=== PATIENT | female | born 1970 | race Caucasian/White ===

== ENCOUNTER 2019-03-24 07:37 | Day surgery (SDC) | payer OTHER ==
--- NOTE | 2019-03-17 12:23 | PREOPHP ---
DATE OF ADMISSION: 03/05/2019 HISTORY OF PRESENT ILLNESS: This is a 49-year-old female, 4, para 4, patient with no history of menopause. She is still menstruating. No vasomotor symptoms. She has been spotting recently fo r a whole month. Patient with a history of shortness of breath and mitral valve disease and a tubal ligation. ALLERGIES: SHE IS NOT ALLERGIC TO ANY MEDICATIONS. MEDICATIONS: She is on no medications. FAMILY HISTORY: Hypertension. SOCIAL HISTORY: No history of smoking or drinking or endocrine disease. PHYSICAL EXAMINATION: VITAL SIGNS: Stable. Blood pressure 120/80, pulse is 80, respirations 16. She is 5 feet 5 inches. She weighs 178. HEAD AND NECK: Normal. BREASTS: Soft, nontender, no masses. CHEST: Clear. HEART: A holosystolic murmur with a slightly irregular heartbeat. ABDOMEN: Normal. GENITALIA: Normal. The cervix with a large polyp or fibroid that is coming out and being delivered by the uterus. This is coming off her cervix. The uterus, normal size. RECTAL: Negative. EXTREMITIES: Normal. DIAGNOSES: 1. Intractable menometrorrhagia. 2. Large cervical polyp or fibroid. 3. Mitral valve disease, irregular heartbeat. 4. Perimenopausal syndrome. PLAN: She is undergoing a D and C, excision of the cervical polyp or mass and hysteroscopy with the TruClear hysteroscope in case she has fibroids inside the uterus that need to be ablated. The patien t has been advised of the possible risks and possible complications of the procedure with her alterna tives and options. Written information was provided. She had no more questions and agreed to go ahe ad with the procedure with full understanding and no more questions. Dictated By: DUSTY RODRIGUEZ/NTS Conf#: [id number] DID#: [id number]
[2019-03-24] VITALS (14 sets, daily range): BP systolic 96–134; BP diastolic 61–85; PULSE 56–68; RESP 12–25
[~2019-03-24] VITALS: Ht 152.9 cm; Wt 79.6 kg
--- NOTE | 2019-03-24 09:30 | PREAC ---
Date/Time of Note Date/Time of Note DATE: 03/24/19 TIME: 09:29 Anesthesia Eval and Record Evaluation Time Pre-Procedure Interview DATE: 03/24/19 TIME: 09:29 Age 49 Sex female NPO: 8 hrs Preoperative diagnosis missed ab Planned procedure d and c Past Medical History Past Medical History: None Surgery & Anesthesia Issues No known issue Meds Anticoagulation: No Beta Elisabet within 24 hr: No Reason Beta Elisabet not given: Pt. not on B-Elisabet Meds reviewed: Yes Allergies Uncoded Allergies: NEED ALLERGY (Allergy, Unknown, 03/23/19) Allergies Reviewed: Yes Labs/Studies Labs Reviewed: Reviewed by anesthesiologist test: Negative Pre-procedure Exam Last vitals Vital Signs Date Temp Pulse Resp B/P (MAP) Pulse Ox O2 O2 Flow FiO2 Time Delivery Rate 03/24/19 98.3 59 18 125/85 Room Air 08:42 (98) 03/24/19 95 08:38 Airway: Adequate mouth opening, Adequate thyromental dist Mallampati: Mallampati II Teeth: Normal Lung: Normal Heart: Normal ASA Physical Status ASA physical status: 2 Emergency: None Planned Anesthetic General/MAC: LMA Planned Pain Management Parenteral pain med Pre-operative Attestations Prior to commencing anesthesia and surgery, the patient was re-evaluated, there was verification of: *The patient's identity *The results of appropriate recent lab work and preoperative vital signs *The above evaluation not changing prior to induction *Anesthetic plan, risk benefits, alternative and complications discussed with patient/family; questions answered; patient/family understands, accepts and wi shes to proceed. EUGENE MARINO Mar 24, 2019 09:30
[2019-03-24] MEDS ORDERED: PROPOFOL 100 ML ONE (10:26)
[2019-03-24] MEDS ORDERED: FENTAnyl 50 MCG/ML VIAL ONE (10:27)
--- NOTE | 2019-03-24 10:36 | HPN ---
Date/Time of Note Date/Time of Note DATE: 03/24/19 TIME: 10:36 Interval H&P Admission Note Pt. seen H&P reviewed: No system changes DUSTY AL MD Mar 24, 2019 10:36
[2019-03-24] MEDS ORDERED: LIDOCAINE 2% (SDV) 5 ML INJ ONE (11:16)
--- NOTE | 2019-03-24 11:18 | SIPON ---
Date/Time of Note Date/Time of Note DATE: 03/24/19 TIME: 11:16 Operative Report Preoperative Diagnosis Intractable menometrorrhagia. Large cervical polyp Fibroid uterus Mitral valve disease Perimenopause Postoperative Diagnosis Same Operation/Procedure Performed Fractional D&C. excision of cervical polyp. hysteroscopy ablation of the endometrium Surgeon see signature line information assistant None Anesthesia: general Estimated blood loss: minimal Transfusion Required none Specimen Cervical polyp endometrial contents Grafts/Implants none Complications none DUSTY AL MD Mar 24, 2019 11:18
--- NOTE | 2019-03-24 11:19 | PD.PPDC ---
BUS AIDE Discharge Instruction Condition Appum0Mr Patient Condition: Juxxb1w Good Diet Tbikh4Vf Diet: Ntvtk6h Resume Regular Diet Activity/Restrictions [id number] Activity: Vloxj8t Normal Activity May Shower Ohoes6Jc Restrictions: Domfs0n No Exercising No Lifting No Driving No Sexual Activity Nothing in the Vagina No Jeffers No Tampons, douche Follow-up Follow-up with Physician: 2, Week/Weeks Return to clinic for Ead[employer] Instructions: Qdlit2s Fever greater than 101 Chills Worsening abdominal pain Excessive Vaginal Bleeding More than 2 pads per hour Unable to tolerate diet DUSTY AL MD Mar 24, 2019 11:19
--- NOTE | 2019-03-24 11:21 | PAC ---
Date/Time of Note Date/Time of Note DATE: 03/24/19 TIME: 11:21 Post-Anesthesia Notes Post-Anesthesia Note Last documented vital signs Vital Signs Date Temp Pulse Resp B/P (MAP) Pulse Ox O2 O2 Flow FiO2 Time Delivery Rate 03/24/19 98.3 59 18 125/85 Room Air 1121 (98) 03/24/19 95 08:38 Activity: WNL Respiratory function: WNL Cardiovascular function: WNL Mental status: Baseline Pain reasonably controlled: Yes Hydration appropriate: Yes Nausea/Vomiting absent: Yes EUGENE MARINO Mar 24, 2019 11:21
[2019-03-24] MEDS ORDERED: ALBUTEROL 0.083% (NEB) 2.5 MG/3 ML AMP HHN PRN (11:30)
[2019-03-24] MEDS ORDERED: KETOROLAC 30 MG INJ IV PRN (11:30)
[2019-03-24] MEDS ORDERED: ONDANSETRON 4 MG INJ IV PRN (11:30)
[2019-03-24] MEDS ORDERED: DIPHENHYDRAMINE 50 MG INJ IV PRN (11:30)
[2019-03-24] MEDS ORDERED: EPHEDrine 25 MG/5 ML SYG IV PRN (11:30)
[2019-03-24] MEDS ORDERED: MEPERIDINE 25 MG INJ IV PRN (11:30)
[2019-03-24] MEDS ORDERED: hydrALAzine 20 MG INJ IV PRN (11:30)
[2019-03-24] MEDS ORDERED: FENTAnyl 50 MCG/ML VIAL IV PRN ×3 (11:30)
[2019-03-24] MEDS ORDERED: LABETALOL HCL 20MG INJ IV PRN (11:30)
[2019-03-24] MEDS ORDERED: MIDAZOLAM 1 MG/ML 2 ML INJ IV PRN (11:30)
--- NOTE | 2019-03-24 12:24 | OPR ---
DATE OF OPERATION: 03/24/2019 PROCEDURE: Fractional dilation and curettage; examination under anesthesia; excision of cervical jaya yp, large; hysteroscopic endometrial ablation. SURGEON: Dusty Denise MD ANESTHESIA: Dr. Johnson with general anesthesia. PREOPERATIVE DIAGNOSES: 1. Intractable menometrorrhagia. 2. Large cervical polyp or fibroid. 3. Fibroid uterus. 4. Mitral valve disease. 5. Perimenopause. POSTOPERATIVE DIAGNOSES: 1. Intractable menometrorrhagia. 2. Large cervical polyp or fibroid. 3. Fibroid uterus. 4. Mitral valve disease. 5. Perimenopause. ANESTHESIA: General. DESCRIPTION OF PROCEDURE: The patient was given general anesthesia, placed in the lithotomy positio n. The perineal and vaginal area were prepped and draped and a straight catheter was used to empty h er bladder. Examination under anesthesia revealed that there was some vaginal atrophy, the cervix wi th a large polyp or mass, and the uterus was retroverted with the feeling of a fibroid. Adnexa were nonpalpable. The cervix was held, and with a Yunior clamp, this mass was grabbed and put torsion on i ts own until it came off. The hysteroscope was going to be used. The ECC was now done. The cervix was felt to be open. A probe was placed all the way in to about 5 cm in the cavity. The scope was p laced in, and visualization of the area revealed that there was another polyp inside, and the stalk o f the polyp was still on the left side. Several curets were used sharply enough to bring out the oth er polyp along with the hysteroscope. An ablation of the cavity was done. The cervical area was scr aped very well again to remove the polyp stalk, and the procedure was finished by removing all the in struments. The patient tolerated the procedure well and left the OR awake and stable. Sponge counts and instrument counts were correct. Intravenous antibiotics were given for prophylaxis. Dictated By: DUSTY RODRIGUEZ/SHAHEEN Conf#: [id number] DID#: [id number]
== END 2019-03-24 12:40 | disposition home or self-care (01) ==
LOC: SDS 07:37
PROVIDERS: ATTEND Obstetrics & Gynecology
DX: D25.9 Leiomyoma of uterus, unspecified (principal); N88.8 Other specified noninflammatory disorders of cervix uteri; N72 Inflammatory disease of cervix uteri; N92.1 Excessive and frequent menstruation with irregular cycle; I05.9 Rheumatic mitral valve disease, unspecified; Z78.0 Asymptomatic menopausal state
CPT/HCPCS: 58563; 88305; J3010; Z7512; Z7610

== ENCOUNTER 2019-04-13 15:02 | Emergency (ER) | payer OTHER ==
[~2019-04-13] VITALS: Ht 154.9 cm; Wt 80.2 kg
[~2019-04-13 15:02] MED LIST: NAPR-985 PO
[2019-04-13 15:06] VITALS: BP 162/84; PULSE 68; RESP 17; Ht 154.9 cm; Wt 80.2 kg
[2019-04-13] MEDS ORDERED: KETOROLAC 60 MG INJ IM STA (16:03)
--- NOTE | 2019-04-13 18:55 | ERD ---
ER Documentation Chief Complaint Chief Complaint BODYACHES, COUGH, HEADACHE, ONSET 1 DAY HPI 49-year-old female who presented to triage complaining of body aches cough and headache told me she had some lower pelvic pain. Patient had a polyp removed April 05. Denies dysuria. Denies fever. Denies cough or runny nose. Has not taken medications for symptoms. Denies medical problems. NKDA. Surgical history is polyp removal and tubal ligation. Social history denies ROS All systems reviewed and are negative except as per history of present illness. Medications Home Meds Active Scripts Naproxen* (Naprosyn*) 500 Mg Tablet, 500 MG PO BID PRN for PAIN AND/OR INFLAMMATION, #30 TAB Prov:ADAM CANALES PA-C 04/13/19 Allergies Allergies: Coded Allergies: No Known Allergy (Unverified , 03/24/19) PMhx/Soc History of Surgery: Yes (tubal ligation) Anesthesia Reaction: No Hx Neurological Disorder: No Hx Respiratory Disorders: No Hx Cardiac Disorders: Yes (mitral valce disease , irregular heart beat) Hx Psychiatric Problems: No Hx Miscellaneous Medical Probl: No Hx Alcohol Use: No Hx Substance Use: No Hx Tobacco Use: No Smoking Status: Never smoker FmHx Family History: No diabetes, No coronary disease, No other Physical Exam Vitals Vital Signs Date Temp Pulse Resp B/P (MAP) Pulse Ox O2 O2 Flow FiO2 Time Delivery Rate 04/13/19 97.6 68 17 162/84 98 15:06 (110) Physical Exam GENERAL: The patient is well-appearing, well-nourished, in no acute distress HEENT: Atraumatic. Conjunctivae are pink. Pupils equal, round, and reactive to light. There is no scleral icterus. Tympanic membranes clear bilaterally. Oropharynx clear. NECK: C-spine is soft and supple. There is no meningismus. There is no cervical lymphadenopathy. CHEST: Clear to auscultation bilaterally. There are no rales, wheezes or rhonchi. HEART: Regular rate and rhythm. No murmurs, clicks, rubs or gallops. ABDOMEN:Soft, nontender and nondistended. Good bowel sounds. No rebound or guarding. No gross peritonitis. No gross organomegaly or masses. Mild tenderness to palpation over the suprapubic region with no lateralized tenderness. BACK: No midline or flank tenderness. Results 24 hrs Laboratory Tests Test 04/13/19 16:51 04/13/19 16:52 04/13/19 17:01 POC Beta HCG, Qualitative NEGATIVE Bedside Urine pH (LAB) 5.0 Bedside Urine Protein (LAB) 1+ Bedside Urine Glucose (UA) Negative Bedside Urine Ketones (LAB) Negative Bedside Urine Blood 1+ Bedside Urine Nitrite (LAB) Negative Bedside Urine Leukocyte Esterase Negative (L Urine Color YELLOW Urine Clarity SLIGHTLY CLOUDY Urine pH 5.0 Urine Specific [place] 1.010 Urine Ketones NEGATIVE mg/dL Urine Nitrite NEGATIVE mg/dL Urine Bilirubin NEGATIVE mg/dL Urine Urobilinogen NEGATIVE mg/dL Urine Leukocyte Esterase NEGATIVE Lelo/ul Urine Microscopic RBC 1 /HPF Urine Microscopic WBC 8 /HPF Urine Squamous Epithelial Cells FEW /HPF Urine Bacteria FEW /HPF Urine Hemoglobin 1+ mg/dL Urine Glucose NEGATIVE mg/dL Urine Total Protein NEGATIVE mg/dl Current Medications Medications Dose Sig/Cat Start Time Status Last (Trade) Ordered Route PRN Stop Time Admin Dose Reason Admin Ketorolac 60 mg ONCE STAT 04/13/19 DC 04/13/19 Tromethamine IM 16:03 16:27 (Toradol) 04/13/19 16:05 Procedures/MDM DIAGNOSTIC IMAGING REPORT Patient: MEIR RAYA : 1970 Age: 49 Sex: F MR #: [id number] DOS: 04/13/19 1603 Ordering MD: MIRTHA CANALES PA-C Location: [facility] Room/Bed: PROCEDURE: US Pelvis. CLINICAL INDICATION: pelvic pain TECHNIQUE: Multiple sonographic images of the pelvis were obtained utilizing transabdominal and endovaginal technique. The images were reviewed on a PACS workstation. COMPARISON: None. FINDINGS: The uterus is normal in size with a heterogeneous appearance of the myometrium. The uterus measures 8.6 x 5.0 x 5.3 cm. There is a 1.4 cm hypoechoic lesion in the uterus, suspicious for fibroid. The endometrial stripe is homogeneous in appearance and has the thickness of 9 mm. There is normal Doppler flow in the right ovary. The right ovary measures 2.5 x 1.7 x 1.1 cm. There is a 1.7 cm simple cyst. The left ovary was not seen. No free fluid is present within the pelvis. RPTAT: AA IMPRESSION: Small simple cyst in the right ovary. Heterogeneous uterus with a 1.4 cm fibroid. Left ovary not visualized. MDM: 49-year-old female presenting with pelvic pain. Patient has a cyst with no signs of torsion. I will suspicion for tubo-ovarian abscess. A low suspicion for urinary tract infection. Patient is discharged with strict ER precautions and told to follow-up with primary care within 1 to 2 days for close evaluation. Patient is told symptoms change or worsen to return immediately to the ER. All questions answered at discharge. I have low suspicion for other infectious process. I have low suspicion for pneumonia. I have low suspicion for bacterial HEENT infection or sepsis. Departure Diagnosis: Primary Impression: Ovarian cyst Condition: Stable Patient Instructions: Ovarian Cyst Referrals: [facility] YOU HAVE RECEIVED A MEDICAL SCREENING EXAM AND THE RESULTS INDICATE THAT YOU DO NOT HAVE A CONDITION THAT REQUIRES URGENT TREATMENT IN THE EMERGENCY DEPARTMENT. FURTHER EVALUATION AND TREATMENT OF YOUR CONDITION CAN WAIT UNTIL YOU ARE SEEN IN YOUR DOCTORS OFFICE WITHIN THE NEXT 1-2 DAYS. IT IS YOUR RESPONSIBILITY TO MAKE AN APPOINTMENT FOR FOLOW-UP CARE. IF YOU HAVE A PRIMARY DOCTOR --you should call your primary doctor and schedule an appointment IF YOU DO NOT HAVE A PRIMARY DOCTOR YOU CAN CALL OUR PHYSICIAN REFERRAL HOTLINE AT IF YOU CAN NOT AFFORD TO SEE A PHYSICIAN YOU CAN CHOSE FROM THE FOLLOWING [facility] [address] [facility] [address] [facility] [address] [facility] [facility] [address] [facility] [address] [facility] [facility]. [address] Additional Instructions: FOLLOW UP WITH YOUR PRIMARY CARE PHYSICIAN TOMORROW.Return to this facility if you are not improving as expected. ADAM CANALES PA-C Apr 13, 2019 18:55
== END 2019-04-13 18:00 | disposition home or self-care (01) ==
LOC: FTE 15:02
DX: N83.201 Unspecified ovarian cyst, right side (principal)
CPT/HCPCS: 76830; 76856; 81001; 81003; 81025; J1885; 96372